=== PATIENT | female | born 1985 | race Caucasian/White ===

== ENCOUNTER 2018-10-14 20:32 | Emergency (ER) | payer OTHER ==
[~2018-10-14] VITALS: Ht 177.8 cm; Wt 72.6 kg
== END 2018-10-15 02:39 | disposition home or self-care (01) ==
LOC: ER 20:32
DX: R10.31 Right lower quadrant pain (principal)

== ENCOUNTER 2019-01-30 10:40 | Emergency (ER) | payer OTHER ==
[~2019-01-30] VITALS: Ht 177.8 cm; Wt 79.8 kg
== END 2019-01-30 14:34 | disposition home or self-care (01) ==
LOC: ER 10:40
DX: R51 Headache (principal)